=== PATIENT | female | born 1980 | race Caucasian/White ===

== ENCOUNTER 2020-11-02 08:15 | Outpatient (CLI) | payer OTHER, SELFPAY ==
--- NOTE | 2020-11-02 08:39 | MM_ITS ---
WS: [id number] DIAGNOSTIC BILATERAL DIGITAL MAMMOGRAM WITH CAD , Bilateral breast ultrasound, limited HISTORY: BREAST TENDERNESS, itching around the LEFT nipple. COMPARISON: None available. TECHNIQUE: Bilateral craniocaudad, mediolateral oblique, and mediolateral views are submitted. Spot c ompression LEFT CC and MLO. Computer aided detection utilized. Breast composition: The breasts are heterogeneously dense, which may obscure small masses. There is n o abnormality noted on the LEFT nipple. No nipple retraction or skin thickening. No mass or dilated d ucts. Prominent soft tissue in the RIGHT axilla is probably normal skin folds. Additional imaging dem onstrated no lymph nodes. Ultrasound will also be performed in this area. Bilateral breast ultrasound, limited. LEFT breast: No abnormality is noted around the areola. No duct dilatation or skin thickening. RIGHT breast: Benign lymph nodes in the RIGHT axilla. MM/[place] [id number] IMPRESSION: BI-RADS: 2-Benign FOLLOW UP: 1 Year Follow-up
== END 2020-11-02 08:16 | disposition home or self-care (01) ==
LOC: RADSHAW 08:21
PROVIDERS: Family Provider Internal Medicine; Visit Provider Family Medicine
DX: N64.4 Mastodynia (principal)
CPT/HCPCS: 76642; 77066

== ENCOUNTER 2021-03-03 09:15 | Emergency (ER) | payer OTHER, SELFPAY ==
[2021-03-03 09:41] VITALS: BP 124/85; PULSE 93; RESP 14; TEMP 36.9; O2SAT 98; BMI 25.6
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
[2021-03-03 10:50] LABS: Basophils % 0.4 %; Eosinophils % 0.2 %; Hematocrit 38.7 % (37.0-47.0); Hemoglobin 12.2 g/dL (11.5-15.3); Lymphocytes # 2.4 10^3/uL (0.8-4.8); Lymphocytes % 25.7 %; Mean Corpuscular HGB Conc 31.5 g/dL (30.0-36.0); Mean Corpuscular Hemoglobin 28.8 pg (28.0-34.0); Mean Corpuscular Volume 91.3 fL (81-99); Mean Platelet Volume 10.9 fL (7.4-10.4); Monocytes # 0.6 10^3/uL (0.2-0.9); Monocytes % 6.4 %; Neutrophils # 6.18 10^3/uL (1.8-7.7); Nucleated Red Blood Cells % 0 %; Platelet Count 276 10^3/cmm (130-400); Red Blood Count 4.24 10^6/uL (4.1-5.3); Red Cell Distribution Width 13.6 % (12.1-15.1); White Blood Count 9.2 10^3/uL (4.0-10.0)
[2021-03-03] MEDS: iohexol 300 mg/mL 100 mL Btl IV (11:01)
[2021-03-03 11:13] LABS: Alanine Aminotransferase 13 U/L (0-33); Albumin Level 4.3 g/dL (3.5-5.2); Alkaline Phosphatase 82 IU/L (35-105); Aspartate Amino Transferase 16 U/L (0-32); Blood Urea Nitrogen 11 mg/dL (6-20); Calcium 8.8 mg/dL (8.5-10.5); Carbon Dioxide 18 mmol/L (22-29); Chloride 110 mmol/L (98-107); Globulin 2.8 g/dL (1.3-4.6); Glomerular Filtration Rate 80.3 mL/min (90-130); Glucose 94 mg/dL (65-115); Osmolality Calculated 285 mOsm/kg (285-295); Sodium 138 mmol/L (136-145); Total Bilirubin 0.2 mg/dL (0.15-1.2); Total Protein 7.1 g/dL (6.6-8.7)
== END 2021-03-03 12:17 | disposition home or self-care (01) ==
PROVIDERS: Emergency Provider Physician Assistant
DX: S80.11XA Contusion of right lower leg, initial encounter (principal); S30.1XXA Contusion of abdominal wall, initial encounter; S20.211A Contusion of right front wall of thorax, initial encounter; V89.2XXA Person injured in unspecified motor-vehicle accident, traffic, initial encounter
CPT/HCPCS: 71260; 73590; 74177; 80053; 85025; 99283; Q9967

== ENCOUNTER → 2021-06-15 14:12 | Outpatient (BNVA) | payer OTHER, SELFPAY | PROVIDERS: Visit Provider Nurse Practitioner Women's Health | DX: N92.1 Excessive and frequent menstruation with irregular cycle (principal) | CPT/HCPCS: 84443; 85025 ==

== ENCOUNTER → 2021-06-29 08:07 | Outpatient (BNVA) | payer OTHER, SELFPAY | PROVIDERS: Visit Provider Nurse Practitioner Women's Health | DX: N93.9 Abnormal uterine and vaginal bleeding, unspecified (principal) | CPT/HCPCS: 76830 ==

== ENCOUNTER → 2021-08-05 09:15 | Outpatient (BNVA) | payer OTHER, SELFPAY | PROVIDERS: PCP Internal Medicine; Visit Provider Obstetrics & Gynecology | DX: Z01.812 Encounter for preprocedural laboratory examination (principal); Z20.822 Contact with and (suspected) exposure to COVID-19 | CPT/HCPCS: 87635 ==

== ENCOUNTER 2021-08-09 08:06 | Day surgery (SDC) | payer OTHER, SELFPAY ==
[2021-08-08 13:06] VITALS: BMI 25.6
[2021-08-09] VITALS (7 sets, daily range): BP systolic 108–139; BP diastolic 72–100; PULSE 85–104; RESP 12–18; TEMP 36.5–36.8; O2SAT 99–100
--- NOTE | 2021-08-09 08:13 | ANES.PREANE2 ---
Pre-Anesthetic Assessment Pre-Anesthetic Assessment: Height/Weight: Height 1.57 m Weight 63.503 kg Preop Diagnosis: abnormal uterine bleeding Proposed Procedure: Operation Date: 08/09/21 09:40 Proposed Procedures p Hysteroscopy w/ Myosure 16807 99907 N93.9 N84.0(Not Applicable) - Yulissa Andrews MD s Dilation And Curettage (D&C)(Not Applicable) - Yulissa Andrews MD Was Beta Pam taken within 24 hours: N/A Was Clonidine taken within 24 hours: N/A Social: Social History: Alcohol (rare special occasion ) and No tobacco Exam: Pre-Anes Outpt Exam: alert, oriented x 3, clear to auscultation bilaterally and regular rate & rhythm Airway: Submandibular: WNL Cervical ROM: WNL MP: 2 Pulmonary: Pulmonary: None reported CV/HEM: CV/HEM: None reported : Comments: Abnormal uterine bleeding Hepatic: Hepatic: None reported GI: GI: None reported Metabolic: Metabolic: None reported Musc/skel: Musc/skel: None reported Neuropsych: Neuropsych: HEALY (Migraine related to mentrual cycles ) Anesthetic Plan: ASA status: 2 Anesthesia: General PFSH Anesthesia PFSH: Medical History Menstrual migraine No pertinent past medical history neghx: htn,dm,thyroid,dvt/pe PCP: Dr. Epstein Surgical History History of surgery on wrist (~1993) Left Hx of tubal ligation (~2011) Family History Mother Breast cancer dx before 50 y/o Thyroid disease Grandfather Diabetes Paternal Father Hypertension Family/Other Ovarian cancer Paternal Aunt--dx age 40's Thyroid disease Maternal and Paternal Aunt Grandmother Thyroid disease Maternal Denies family history of Colon cancer Heart disease Hypercholesteremia Uterine cancer Stroke Female Reproductive History: Date of last menstrual period: 07/29/21 Data Anesthesia Cardiac Studies: No Data to Display
[2021-08-09 08:29] LABS: OR HCG Qualitative Urine Negative (Negative)
[2021-08-09] MEDS: ketorolac 30 mg/mL INJ IVP (08:38)
[2021-08-09 08:43] LABS: Basophils # 0.1 10^3/uL (0.0-0.1); Basophils % 0.6 %; Eosinophils # 0.1 10^3/uL (0.0-0.8); Eosinophils % 0.8 %; Hematocrit 40.4 % (37.0-47.0); Hemoglobin 12.8 g/dL (11.5-15.3); Lymphocytes # 2.4 10^3/uL (0.8-4.8); Lymphocytes % 27.3 %; Mean Corpuscular HGB Conc 31.7 g/dL (30.0-36.0); Mean Corpuscular Hemoglobin 28.9 pg (28.0-34.0); Mean Corpuscular Volume 91.2 fl (81-99); Mean Platelet Volume 11.1 fL (7.4-10.4); Monocytes # 0.4 10^3/uL (0.2-0.9); Monocytes % 4.6 %; Neutrophils # 5.95 10^3/uL (1.8-7.7); Neutrophils % 66.5 %; Nucleated Red Blood Cells % 0 %; Platelet Count 292 10^3/cmm (130-400); Red Blood Count 4.43 10^6/uL (4.1-5.3); Red Cell Distribution Width 13.5 % (12.1-15.1); White Blood Count 8.9 10^3/uL (4.0-10.0)
[2021-08-09] MEDS: sodium chloride 0.9% 1,000 ML 30 ML IV (08:43)
--- NOTE | 2021-08-09 09:42 | W.PM.OPSUD ---
Surgery/Procedure H&P Update DATE OF PROCEDURE: August 09, 2021 DATE H&P PERFORMED: 08/01/21 H&P UPDATE INFORMATION: I have reviewed H&P completed within last 30 days, I have examined patient prior to procedure and No changes to prior documentation CHANGES TO PREVIOUS DOCUMENTATION: I have seen and examined patient and there are no changes. PREOP DIAGNOSIS: abnormal uterine bleeding PLANNED PROCEDURE: Operation Date: 08/09/21 09:40 Proposed Procedures p Hysteroscopy w/ Myosure 13908 94369 N93.9 N84.0(Not Applicable) - Yulissa Andrews MD s Dilation And Curettage (D&C)(Not Applicable) - Yulissa Andrews MD Related Problem List Diagnoses (1) Abnormal uterine bleeding (AUB): (2) Endometrial polyp:
[2021-08-09] MEDS: miSOPROStol 200 mcg Tablet 800 MCG VAGINAL (10:20)
--- NOTE | 2021-08-09 11:02 | P.OP_ITS ---
Operative Report Date of procedure: August 09, 2021 Pre-op Diagnosis: abnormal uterine bleeding Post-op diagnosis: same Post-op Findings: Some extra tissue on the right uterine wall. Procedure Done: hysteroscopy, dilation and curettage with myosure Specimens removed/disposition: endometrial curettings to pathology Surgeon: Yulissa Andrews Anesthesia: General Estimated blood loss (mL): 5 IV fluids (mL): 600 Complications: none. Hysteroscopy deficit 170 ml Findings: 8 week sized uterus. Some excessive tissue on the right Condition: stable Disposition: PACU Procedure: The patient was taken to the operating room where monitored anesthesia was administered and to be adequate. She was prepped and draped in the normal sterile fashion in the dorsal lithotomy position in [facility]. A weighted speculum was placed into the vagina and the anterior lip of the cervix grasped with a single-tooth tenaculum. The cervix was stenotic and 800mcg of cytotec was placed into the posterior vagina. The uterus was sounded to 8 cm. The cervix was dilated to [address] [place]. The hysteroscope was advanced into the endometrial cavity. There was a small amount of excessive tissue visualized on the right. The MyoSure device was activated and the tissue was removed. Pictures were taken pre and post procedure. All instruments were removed. The patient tolerated the procedure well. Sponge lap and needle counts were correct x3. She was taken to the recovery room in stable condition.
--- NOTE | 2021-08-09 11:07 | P.DS_ITS ---
Discharge Providers Date of Discharge: August 09, 2021 Attending Provider at Discharge: Yulissa Andrews MD Primary Care Provider: David Epstein DO Diagnoses at Discharge Discharge Diagnosis (1) Abnormal uterine bleeding (AUB): Status: Acute (2) Endometrial polyp: Status: Acute Reason for Visit Reason for Visit: Abnormal uterine bleeding, endometrial polyps Hospital Course Hospital Course The patient was admitted for surgery. she did well postoperatively and was ready for discharge. Discharge Data Data Completed and Pending: Pending at discharge Category Date Time Status Retype for Riky s ABO/Rh Routine Lab 08/09/21 10:55 Ordered Pathology: Surgic al [PTH] Routine Pth 08/09/21 11:02 Ordered Labs from last 24 hours 08/09/21 08/09/21 08/09/21 08:33 08:33 08:26 WBC 8.9 RBC 4.43 Hgb 12.8 Hct 40.4 MCV 91.2 MCH 28.9 MCHC 31.7 RDW 13.5 Plt Count 292 MPV 11.1 H Neut % (Auto) 66.5 Lymph % (Auto) 27.3 [place] % (Auto) 4.6 Eos % (Auto) 0.8 Baso % (Auto) 0.6 Neut # (Auto) 5.95 Lymph # (Auto) 2.4 [place] # (Auto) 0.4 Eos # (Auto) 0.1 Baso # (Auto) 0.1 Nucleated RBC % (a uto) 0 Nucleated RBCs # 0.0 Urine HCG, Qual Negative Blood Type O Positive Rho(D) Type Positive Antibody Screen Negative Vitals: Last Vital Signs Temp 98.2 F 08/09/21 08:16 Pulse 85 08/09/21 08:16 Resp 18 08/09/21 08:16 BP 116/72 08/09/21 08:16 Pulse Ox 100 08/09/21 08:16 Discharge Plan Discharge Patient Disposition: Home Condition: Stable Prescriptions: Continued norethindrone ac-eth estradiol [Microgestin 09/29 ()] 1-20 mg-mcg tablet 1 tab PO DAILY Qty: 84 RF: 5 sumatriptan succinate 100 mg tablet 100 mg PO Q2H PRN (Reason: Migraine Headache) RF: 0 topiramate [Topamax] 200 mg tablet 200 mg PO DAILY RF: 0 Discharge Orders: Discharge Order (Routine); Ordered 08/09/21 Ordered By: Yulissa Andrews Discharge Attestations Time Spent in Discharge Care*: less than 30 min Quality Metrics Clinical Quality Measures During this hospital stay, did patient experience: None Coding Level of Care Code Acute Chg [facility] note Diagnoses Abnormal uterine bleeding (AUB) N93.9 Endometrial polyp N84.0
--- NOTE | 2021-08-09 12:25 | ANE.PACU2 ---
Inpatient post-anesthesia follow up: Airway intact: Yes Vital signs: Temperature 97.8 F Pulse Rate 99 Respiratory Rate 18 Blood Pressure 118/74 Pulse Oximetry 100 Oxygen Delivery Me thod Room Air Oxygen Flow Rate Fraction of Inspir ed Oxygen Hydration adequate: Yes Nausea and vomiting: Yes Pain level: 3 Mental status: Baseline
== END 2021-08-09 11:53 | disposition home or self-care (01) ==
PROVIDERS: PCP Internal Medicine; Visit Provider Obstetrics & Gynecology
PROC: 0UDB8ZZ Extraction of Endometrium, Via Natural or Artificial Opening Endoscopic (ICD-10-PCS; CPT 58558; principal; 2021-08-09 09:40)
PROC: (CPT 58120; 2021-08-09 09:40)
DX: N93.9 Abnormal uterine and vaginal bleeding, unspecified (principal); N84.0 Polyp of corpus uteri; Z80.3 Family history of malignant neoplasm of breast; Z80.41 Family history of malignant neoplasm of ovary; Z82.49 Family history of ischemic heart disease and other diseases of the circulatory system; Z83.3 Family history of diabetes mellitus
CPT/HCPCS: 58558; 36415; 81025; 84703; 85025; 86850; 86900; 88305; J0330; J0690; J1100; J1885; J2250; J2405; J2704; J3010; J7030

== ENCOUNTER 2021-11-22 11:41 | Outpatient (CLI) | payer OTHER, SELFPAY ==
--- NOTE | 2021-11-22 11:49 | MM_ITS ---
WS: [id number] Bilateral screening 3D tomosynthesis digital mammogram, 11/22/2021 Clinical Data: Z12.39 - Encounter for other screening for malignant neop... Comparison: 11/02/2020. Findings: The breast parenchymal pattern shows heterogeneous density No spiculated masses or clustered calcific ations are seen. There are no secondary signs of carcinoma. MM/[place] [id number] Impression: 1. Negative bilateral mammogram unchanged. 2. Recommend annual screening mammograms. BIRADS: 1-Negative FOLLOW UP: 1 Year Follow-up The CAD photo checker and assembler was used.
== END 2021-11-22 11:42 | disposition home or self-care (01) ==
LOC: RADSHAW 11:44
PROVIDERS: PCP Internal Medicine; Visit Provider Obstetrics & Gynecology
DX: Z12.31 Encounter for screening mammogram for malignant neoplasm of breast (principal)
CPT/HCPCS: 77063; 77067

== ENCOUNTER → 2022-07-19 16:00 | Outpatient (BNVA) | payer OTHER, SELFPAY | PROVIDERS: PCP Internal Medicine; Visit Provider Nurse Practitioner Women's Health | DX: N64.52 Nipple discharge (principal); N64.4 Mastodynia | CPT/HCPCS: 84146; 84439; 84443 ==

== ENCOUNTER 2022-08-15 09:24 | Outpatient (CLI) | payer OTHER, SELFPAY ==
--- NOTE | 2022-08-15 09:46 | MM_ITS ---
WS: [id number] Right breast diagnostic 3D tomosynthesis digital mammogram, 08/15/2022 Clinical Data: N64.4 - Mastodynia Comparison: 11/02/2020 Findings: There is a marker on the upper outer quadrant of the right breast marking the site of pain. There are no spiculated masses or clustered calcifications. No nodules are noted in this region. There is no c hange from the previous mammogram. The breast parenchymal pattern shows fibroglandular tissue. The pe riareolar region shows no abnormalities. MM/[place] [id number] Impression: 1. Negative right breast mammogram. 2. Breast ultrasound will be performed. BIRADS: 1-Negative FOLLOW UP: See Report The CAD mechanical and auto body car checker was used.
--- NOTE | 2022-08-15 09:46 | US_ITS ---
WS: [id number] Right breast ultrasound, 08/15/2022 Clinical Data: N64.4 - Mastodynia Comparison: Mammogram, 08/15/2022, bilateral breast ultrasound, 11/02/2020 Findings: The right breast ultrasound of the upper outer quadrant at the 10:00 position over the site of pain d emonstrates only normal breast tissue. The ultrasound of the right areolar region shows only normal b reast tissue. There are no cysts or masses. US/US breast RT limited* [id number] Impression: 1. Negative right breast ultrasound. 2. Recommend repeat mammograms when clinically indicated. BIRADS: 1-Negative FOLLOW UP: 1 Year Follow-up
== END 2022-08-15 09:25 | disposition home or self-care (01) ==
PROVIDERS: PCP Internal Medicine; Visit Provider Nurse Practitioner Women's Health
DX: N64.4 Mastodynia (principal); N64.52 Nipple discharge
CPT/HCPCS: 76642; 77061; G0279

== ENCOUNTER 2022-11-29 07:54 | Outpatient (CLI) | payer OTHER, SELFPAY ==
--- NOTE | 2022-11-29 08:08 | MM_ITS ---
WS: [id number] SCREENING DIGITAL TOMOSYNTHESIS MAMMOGRAM WITH CAD HISTORY: SCREEN COMPARISON: 08/15/2022, 11/22/2021 and 11/02/2020 Bilateral CC and MLO with tomosynthesis views submitted. Synthetic mammography reviewed. Computer aid ed detection analyzed. Breast composition: The breasts are heterogeneously dense, which may obscure small masses. No suspici ous masses, microcalcifications or architectural distortion. MM/[place] [id number] IMPRESSION: BI-RADS: 1-Negative FOLLOW UP: 1 Year Follow-up
== END 2022-11-29 07:55 | disposition home or self-care (01) ==
PROVIDERS: PCP Internal Medicine; Visit Provider Internal Medicine
DX: Z12.31 Encounter for screening mammogram for malignant neoplasm of breast (principal)
CPT/HCPCS: 77063; 77067

== ENCOUNTER 2023-01-05 14:24 | Outpatient (CLI) | payer OTHER, SELFPAY ==
--- NOTE | 2023-01-05 14:45 | USCV_ITS ---
Bell Pierson Age: 42 Gender: F : 1980 Exam Date: 01/05/2023 14:58 Ordering Phys: Liborio Thayer MD ([email or web address]) Technologist: Exam Location: [facility] [place] Indication: palpitations BP: 125 / 70 HR: 70 Rhythm: Sinus Technical Quality: Adequate MEASUREMENTS (Male / Female) Normal Values 2D ECHO LV Diastolic Diameter PLAX 3.4 cm 4.2 - 5.9 / 3.9 - 5.3 cm LV Systolic Diameter PLAX 2.5 cm IVS Diastolic Thickness 1.0 cm 0.6 - 1.0 / 0.6 - 0.9 cm IVS Systolic Thickness 1.2 cm LVPW Diastolic Thickness 0.7 cm 0.6 - 1.0 / 0.6 - 0.9 cm LVPW Systolic Thickness 1.2 cm LVOT Diameter 1.7 cm LV Ejection Fraction 2D Teich 53.2 % LV Ejection Fraction MOD 2C 76.3 % LV Ejection Fraction 2C AL 76.1 % LA Diameter 3.1 cm Aorta at Sinotubular Diameter 2.3 cm IVC Diameter 1.5 cm M-MODE Aortic Annulus Diameter 2.9 cm LA Ao Ratio MM 1.2 MV E Point Septal Separation 1.0 cm DOPPLER AV Peak Velocity 135.0 cm/s LVOT Peak Velocity 99.0 cm/s AV Area Cont Eq vti 1.5 cm squared AV Area Cont Eq pk 1.6 cm squared MV Area PHT 5.0 cm squared Mitral E to A Ratio 1.6 MV E' Velocity 56.0 cm/s Mitral E to MV E' Ratio 6.2 Mitral E to LV E' Lateral Ratio 6.6 Mitral E to LV E' Septal Ratio 6.0 TR Peak Velocity 264.7 cm/s TR Peak Gradient 28.0 mmHg TV Peak E Velocity 84.0 cm/s Right Atrial Pressure 3.0 mmHg Pulmonary Artery Systolic Pressu 31.0 mmHg RV Acceleration Time 0.2 s FINDINGS Left Ventricle Normal left ventricular size and systolic function, EF 68 %. No regional wall motion abnormalities. Right Ventricle The right ventricle is normal in size and function. Right Atrium The right atrium is normal in size. Left Atrium The left atrium is normal in size. Mitral Valve Trace to mild mitral valve regurgitation. Aortic Valve No gross abnormalities noted Tricuspid Valve Trace tricuspid valve regurgitation. Pulmonic Valve No gross abnormalities noted Pericardium Normal pericardium without effusion. Aorta Normal ascending aorta dimension. IVC The inferior vena cava appears normal. CONCLUSIONS Normal left ventricular size and systolic function, EF 68 %. No regional wall motion abnormalities. Normal cardiac chamber sizes. Trace to mild mitral valve regurgitation. Trace tricuspid valve regurgitation. Estimated pulmonary artery peak systolic pressure 31 mmHg There is no pericardial effusion. There are no intracardiac masses. No similar previous studies are available for comparison Dr Liborio Thayer MD FAC (Electronically Signed) Final Date: 15 Jan 2023 08:52 S
== END 2023-01-05 14:25 | disposition home or self-care (01) ==
LOC: RAD 14:25
PROVIDERS: PCP Internal Medicine; Visit Provider Internal Medicine Cardiovascular Disease
DX: I49.9 Cardiac arrhythmia, unspecified (principal); R06.02 Shortness of breath; R07.89 Other chest pain
CPT/HCPCS: 93306

== ENCOUNTER 2023-02-07 11:33 | Outpatient (CLI) | payer OTHER, SELFPAY ==
[2023-02-07 11:42] VITALS: BMI 25.7
--- NOTE | 2023-02-07 11:43 | ECG_ITS ---
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 Interpretive Statements NAME OF STUDY: TREADMILL STRESS TEST INDICATION: Chest Pain Baseline blood pressure of 107/62 mm Hg, heart rate 70 beats per minute. EKG showed sinus rhythm, normal axis with incomplete right bundle branch block. The patient exercised for 7 minutes and 2 seconds on a standard Aniket protocol. Patient attained a maximum heart rate of 162 beats per minute( 90 % of the maximum predicted heart rate) with a blood pressure at the peak exercise of 143/67 mm Hg. The EKG at the peak exercise revealed sinus tachycardia with no significant ST-T wave changes. Patient did not have any chest pain or any significant arrhythmis with the exercise During the recovery phase, there were no new changes. Blood pressure at the end of the recovery phase was 105/71 mm Hg with a heart rate of 97 beats per minute. CONCLUSION: 1. Normal EKG response to treadmill exercise. 2. No exercise-induced chest pain or cardiac arrhythmia. 3. Good exercise tolerance, attained a maximum of 10.2 METs. 4. Baseline normal blood pressure with normal response to exercise. Electronically Signed On 02-07-2023 15:34:03 CDT by Kaila Roa M.D. [email or web address]
[2023-02-07 12:35] VITALS: BP 108/72; PULSE 99
== END 2023-02-07 11:34 | disposition home or self-care (01) ==
PROVIDERS: PCP Internal Medicine; Visit Provider Internal Medicine Cardiovascular Disease
DX: R07.9 Chest pain, unspecified (principal); I45.10 Unspecified right bundle-branch block
CPT/HCPCS: 93017

== ENCOUNTER → 2023-03-08 09:17 | Outpatient (BNVA) | payer OTHER, SELFPAY | PROVIDERS: PCP Internal Medicine; Visit Provider Podiatrist Foot & Ankle Surgery | DX: M79.672 Pain in left foot (principal); L60.1 Onycholysis | CPT/HCPCS: 73630 ==

== ENCOUNTER 2023-11-27 12:32 | Outpatient (CLI) | payer OTHER, SELFPAY ==
--- NOTE | 2023-11-27 12:39 | CT_ITS ---
WS: [email or web address] CT CERVICAL SPINE HISTORY: CSPINE FX TECHNIQUE: Contiguous 2.0 mm axial imaging performed through the entire cervical spine. Sagittal and coronal reformats also performed. All CT scans at [facility] use at least one of these dose o ptimization techniques: automated exposure control; mA and/or kV adjustment per patient size (include s targeted exams where dose is matched to clinical indication); or iterative reconstruction. DLP: 137.87 mGy.cm COMPARISON: Cervical spine radiograph 11/07/2023 Normal cervical alignment. Craniocervical junction, atlantodental interval and C1-C2 alignment is nor mal. No bony defect is identified within the ring of C1 with the posterior arch. No fractures. Lateral mas ses of C1 and C2 are normally aligned. Odontoid process is intact. C2-C3: Normal. C3-C4: Small central disc protrusion. C4-C5: Normal. C5-C6: Normal. C6-C7: Normal. C7-T1: Normal. Soft tissues are normal. Lung apices are clear. IMPRESSION: 1. No acute cervical spine fracture. 2. No defect in the posterior ring of C1.
== END 2023-11-27 12:33 | disposition home or self-care (01) ==
PROVIDERS: PCP Internal Medicine; Visit Provider Internal Medicine
DX: S12.9XXA Fracture of neck, unspecified, initial encounter (principal); X58.XXXA Exposure to other specified factors, initial encounter
CPT/HCPCS: 72125

== ENCOUNTER 2023-12-03 07:45 | Outpatient (CLI) | payer OTHER, SELFPAY ==
--- NOTE | 2023-12-03 07:50 | MM_ITS ---
WS: [email or web address] VIEWS: MLO and CC views both breasts. 3D digital tomosynthesis is also included in this exam. Comparison made with prior exam of 11/02/2020, 11/22/2021, 08/15/2022, 11/29/2022.. Findings: There was no sign of mass, architectural distortion or suspicious calcification in either breast. The breasts are heterogeneously dense which may obscure small masses Impression: MM/[place] [id number] BI-RADS: 1-Negative FOLLOW-UP: 1 Year Follow-up This mammogram was also analyzed by the Computer Aided Detection System R2 Imag e Media Production Operator.
== END 2023-12-03 07:46 | disposition home or self-care (01) ==
LOC: RAD 07:46
PROVIDERS: PCP Internal Medicine; Visit Provider Internal Medicine
DX: Z12.31 Encounter for screening mammogram for malignant neoplasm of breast (principal)
CPT/HCPCS: 77063; 77067

== ENCOUNTER 2024-12-03 07:42 | Outpatient (CLI) | payer OTHER, SELFPAY ==
--- NOTE | 2024-12-03 07:45 | MM_ITS ---
WS: [email or web address] BILATERAL SCREENING DIGITAL TOMOSYNTHESIS MAMMOGRAM WITH CAD HISTORY: SCREENING COMPARISON: 12/03/2023, 11/29/2022 Bilateral CC and MLO views with tomosynthesis and synthetic mammography submitted. Computer aided detection analyzed. Breast composition: There are scattered areas of fibroglandular density. No suspicious masses, microcalcifications or architectural distortion. MM/MM scr BI tomosynthesis [id number] IMPRESSION: BI-RADS: 1 - Negative. FOLLOW UP: 1 Year Follow-up
== END 2024-12-03 07:43 | disposition home or self-care (01) ==
PROVIDERS: PCP Nurse Practitioner Family; Visit Provider Nurse Practitioner Family
DX: Z12.31 Encounter for screening mammogram for malignant neoplasm of breast (principal); R92.323 Mammographic fibroglandular density, bilateral breasts
CPT/HCPCS: 77063; 77067

== ENCOUNTER 2025-03-09 15:08 | Outpatient (CLI) | payer OTHER, SELFPAY ==
--- NOTE | 2025-03-09 15:18 | MR_ITS ---
WS: [email or web address] MRI HEAD WITH CONTRAST TECHNIQUE: Sagittal T1, T2 axial, T2 axial FLAIR, axial susceptibility weighted imaging, axial diffusion weighted images, and coronal T2 images were obtained. Pre and post-T1 axial and post T1 coronal images. ADC and FSPGR images. CLINICAL INFORMATION: DOUBLE VISION/DIPLOPIA COMPARISON: None. FINDINGS: No evidence of restricted diffusion to suggest acute ischemia. No suspicious intracranial signal abnormalities. Slightly low-lying cerebellar tonsils. Normal fourth ventricle. No hydrocephalus. Normal posterior fossa. Normal vascular flow voids at the skull base. No extra- axial fluid collections. No evidence of mass or mass effect. Paranasal sinuses and mastoid air cells are well aerated. No hemosiderin on susceptibly weighted images. Normal optic chiasm and pituitary infundibulum. Temporal lobes and hippocampal formations are normal in appearance. No abnormal gadolinium enhancement. Normal dural venous sinuses. MR/MR head wo/w con [id number] IMPRESSION: 1. No evidence of restricted diffusion to suggest acute ischemia. 2. No suspicious intracranial signal abnormalities. 3. No abnormal gadolinium enhancement. 4. Slightly low-lying cerebellar tonsils. Normal fourth ventricle. 5. No other suspicious findings.
[2025-03-09] MEDS: gadobenate dimeglumine 20 mL vial 14 ML IV (15:57)
== END 2025-03-09 15:09 | disposition home or self-care (01) ==
LOC: RAD 15:12
PROVIDERS: PCP Nurse Practitioner Family; Visit Provider Nurse Practitioner Family
DX: H53.2 Diplopia (principal)
CPT/HCPCS: 70553

== ENCOUNTER → 2025-04-23 09:01 | Outpatient (BNVA) | payer OTHER, SELFPAY | PROVIDERS: PCP Nurse Practitioner Family; Referring Provider Nurse Practitioner Family; Visit Provider Psychiatry & Neurology Neurology | DX: G43.829 Menstrual migraine, not intractable, without status migrainosus (principal); E55.9 Vitamin D deficiency, unspecified | CPT/HCPCS: 36415; 82306; 82607; 82746; 83735; 83921; 84439; 84443 ==

== ENCOUNTER 2025-05-15 07:54 | Outpatient (CLI) | payer OTHER, SELFPAY ==
--- NOTE | 2025-05-15 08:00 | MR_ITS ---
WS: [email or web address] MR CERVICAL SPINE WO/W COMPARISON: None. HISTORY: M54.2 - Cervicalgia TECHNIQUE: Sagittal T1, T2 and T2 inversion recovery; axial T2, T2 gradient and fiesta. Post gadolinium imaging with fat saturation technique. FINDINGS:Straightening with slight reversal of the normal cervical lordosis. No high grade central canal narrowing. Cord signal is normal. No abnormal gadolinium enhancement. C2-3: Spinal canal and foramen are patent. C3-4: Spinal canal and foramen are patent. C4-5: Mild facet arthropathy. Minimal disc bulging. Spinal canal and foramen are patent. C5-6: Minimal disc bulging. Mild facet arthropathy. Spinal canal and foramen are patent. C6-7: Mild disc bulging with shallow central protrusion. Slight effacement of the ventral thecal sac. Spinal canal and foramen are patent. Mild facet arthropathy. C7-T1: Spinal canal and foramen are patent. MR/MR cervical spine wo/w [id number] IMPRESSION: 1. Straightening slight reversal of the normal cervical lordosis. 2. No high-grade central canal or foraminal narrowing. 3. Cord signal is normal. 4. No abnormal gadolinium enhancement. 5. Mild disc bulging at C6-7 with a shallow central protrusion. Slight effacem ent of the ventral thecal sac. 6. Minimal disc bulging C4-C5 and C5-C6.
[2025-05-15] MEDS: gadobenate dimeglumine 20 mL vial 15 ML IV (09:28)
== END 2025-05-15 07:55 | disposition home or self-care (01) ==
LOC: RAD 07:57
PROVIDERS: PCP Nurse Practitioner Family; Visit Provider Psychiatry & Neurology Neurology
DX: M50.323 Other cervical disc degeneration at C6-C7 level (principal); M50.223 Other cervical disc displacement at C6-C7 level; R93.7 Abnormal findings on diagnostic imaging of other parts of musculoskeletal system; M47.892 Other spondylosis, cervical region
CPT/HCPCS: 72156